=== PATIENT | male | born 1980 | race Two or more races ===

== ENCOUNTER 2017-01-18 22:29 | Emergency (ER) | payer BC ==
[~2017-01-18] VITALS: Ht 162.6 cm; Wt 73.5 kg
[2017-01-18 22:58] VITALS: BP 141/92
--- NOTE | 2017-01-18 23:14 | PHYS DOC ---
Past Medical History Past Medical History: Other Additional Past Medical Histor: acid reflux Past Surgical History: Tonsillectomy Alcohol Use: None Drug Use: None Adult General Chief Complaint Chief Complaint: SORE THROAT HPI HPI Patient is a 36 year old male presents to the emergency department stating that he has had a sore throat for the last 2 days states he's been having fever and chest burning type sensation. Patient states that the burning sensation goes up into his throat. He states that he does take Zantac however he has not missed any doses. He denies any dietary habits of fried greasy fatty foods. Patient denies any cough or congestion. Review of Systems Review of Systems Constitutional: fever Eyes: Denies change in visual acuity, redness, or eye pain [] HENT: Denies nasal congestion or sore throat [] Respiratory: Denies cough or shortness of breath [] Cardiovascular: No additional information not addressed in HPI. c/o burning sensation in the chest and up into the throat GI: Denies abdominal pain, nausea, vomiting, bloody stools or diarrhea [] : Denies dysuria or hematuria [] Musculoskeletal: Denies back pain or joint pain [] Integument: Denies rash or skin lesions [] Neurologic: Denies headache, focal weakness or sensory changes [] Endocrine: Denies polyuria or polydipsia [] All other systems were reviewed and found to be within normal limits, except as documented in this note. Current Medications Current Medications Current Medications Medications (Trade) Dose Ordered Sig/Skyler Start Time Stop Time Status Last Admin Dose Admin Al Hydroxide/Mg Hydroxide (Mylanta Plus Xs) 30 ml 1X ONCE 01/18/17 23:30 01/18/17 23:31 DC 01/18/17 23:23 30 ML Allergies Allergies Allergies Coded Allergies Type Severity Reaction Last Updated Verified No Known Drug Allergies 01/18/17 No Physical Exam Physical Exam Constitutional: Well developed, well nourished, no acute distress, non-toxic appearance. [] HENT: Normocephalic, atraumatic, bilateral external ears normal, oropharynx moist, no oral exudates, nose normal. Bilateral tympanic membranes appear to be normal. Throat with erythematous no exudate noted. Mucous membrane appears to be moist. No anterior cervical adenopathy noted. Eyes: PERRLA, EOMI, conjunctiva normal, no discharge. [] Neck: Normal range of motion, no tenderness, supple, no stridor. [] Cardiovascular:Heart rate regular rhythm, no murmur [] Lungs & Thorax: Bilateral breath sounds clear to auscultation [] Skin: Warm, dry, no erythema, no rash. [] Extremities: No tenderness, no cyanosis, no clubbing, ROM intact, no edema. [] Neurologic: Alert and oriented X 3, normal motor function, normal sensory function, no focal deficits noted. [] Psychologic: Affect normal, judgement normal, mood normal. [] Current Patient Data Vital Signs Vital Signs Date Time Temp Pulse Resp B/P (MAP) Pulse Ox O2 Delivery O2 Flow Rate FiO2 01/18/17 22:58 98.1 99 16 99 Room Air 98.1 EKG EKG [] Radiology/Procedures Radiology/Procedures [] Course & Med Decision Making Course & Med Decision Making Pertinent Labs and Imaging studies reviewed. (See chart for details) Rapid strep was negative. Patient be provided with a dose of Maalox here in the emergency department. Patient was provided with Maalox here in the emergency department after reevaluation patient states that the burning sensation is completely gone. Patient was recommended to stop taking the Zantac and will be placed on Nexium. Recommended that he follow-up with his primary care physician in the next 3-5 days. Recommended avoiding fried greasy fatty foods. Patient agrees with discharge instructions and treatment regimens. He'll be discharged home in stable condition patient does not appear to be in any current distress at this time. Patient agrees with discharge instructions, treatment regimens and follow-up recommendations. He was provided with all signs and symptoms to return back to the emergency department. I've spoken with the patient. I've explained the patient's condition, diagnosis and treatment plan based on information available to me at this time. I've answered the patient's and/or caregivers questions and addressed any concerns. The patient and/or caregivers have a good understanding the patient's diagnosis , condition and treatment plan as can be expected at this point. Vital signs have been stabilized. The patient's condition is stable for discharge from the emergency department. The patient will pursue further outpatient evaluation with her primary care provider or other designated consulting physician as outlined in the discharge instructions. Patient and/or caregivers are agreeable to this plan of care and follow-up instructions have been explained in detail. The patient and/or caregivers have received these instructions in written format and expressed understanding of these discharge instructions. The patient and her caregivers are aware that if any significant change in condition or worsening of symptoms should prompt him to immediately return to this of the closest emergency department. If an emergent department is not readily available I would encourage him to call 911. [] [place] Disclaimer Dragon Disclaimer This electronic medical record was generated, in whole or in part, using a voice recognition dictation system. Departure Departure Impression: Primary Impression: Pharyngitis Additional Impression: Acid reflux Disposition: HOME, SELF-CARE Condition: STABLE Referrals: NO PCP (PCP) Patient Instructions: Gastroesophageal Reflux Disease, Adult, [id number], Viral and Bacterial Pharyngitis, [id number] Additional Instructions: Activity as tolerated Medication as prescribed Stop taking the zantac and start taking the medication as prescribed Avoid fried, greasy fatty food Followup with your primary care provider in 3-5 days Return to emergency department as needed for signs and symptoms that become worse. Scripts Esomeprazole Magnesium (NEXIUM CAPSULE) 20 Mg Capsule. 20 MG PO DAILYAC, #30 CAP 0 Refills Prov: MOR PETERS APRN 01/18/17 Problem Qualifiers Primary Impression: Pharyngitis Pharyngitis/tonsillitis etiology: unspecified etiology Qualified Codes: J02.9 - Acute pharyngitis, unspecified Additional Impression: Acid reflux Esophagitis presence: esophagitis presence not specified Qualified Codes: K21.9 - Gastro-esophageal reflux disease without esophagitis MOR PETERS [employer] Jan 18, 2017 23:14
[2017-01-18] MEDS ORDERED: MAG HYDROX/ALUMINUM HYD/SIMETH 30 ML ORAL.SUSP PO ONE (23:30)
[2017-01-18] MEDS ORDERED: ESOM20CA PO (23:44)
[2017-01-19 09:56] LABS: NEGATIVE OBC STREP NEG; POSITIVE OBC STREP POS
== END 2017-01-18 23:59 | disposition home or self-care (01) ==
LOC: ER 22:29
DX: J02.9 Acute pharyngitis, unspecified (principal); K21.9 Gastro-esophageal reflux disease without esophagitis
CPT/HCPCS: 87070; 87880; 99283

== ENCOUNTER 2017-08-03 09:49 | Emergency (ER) | payer BC ==
[2017-08-03 10:19] LABS: NEGATIVE OBC STREP NEG; POSITIVE OBC STREP POS
== END 2017-08-03 10:39 | disposition home or self-care (01) ==
LOC: ER 09:49
DX: J02.9 Acute pharyngitis, unspecified (principal); J04.0 Acute laryngitis; K21.9 Gastro-esophageal reflux disease without esophagitis; I10 Essential (primary) hypertension
CPT/HCPCS: 87070; 87880; 99283

== ENCOUNTER → 2019-09-29 | Outpatient (CLI) | payer BC ==
[2017-08-03 10:09] VITALS: BP 154/93
[~2019-09-29] MED LIST: AZIT250T PO; BENZ100C PO; CETI10TA24 PO; ESOM20CA PO; PRED50TA PO
[2019-09-30 20:09] LABS: ANA INTERP Negative (.)
[2019-10-01 19:10] LABS: ALBUM 3.9 g/dL (2.9-4.4); ALPHA 1 0.2 g/dL (0.0-0.4); ALPHA 2 0.7 g/dL (0.4-1.0); BETA 1.1 g/dL (0.7-1.3); GAMMA 1.1 g/dL (0.4-1.8); SPEP AG RATIO 1.3 (0.7-1.7)
== END | disposition home or self-care (01) ==
LOC: LAB 12:05
PROVIDERS: ATTEND Psychiatry & Neurology Neurology with Special Qualifications in Child Neurology
DX: G62.89 Other specified polyneuropathies (principal); R20.0 Anesthesia of skin; R53.1 Weakness
CPT/HCPCS: 36415; 82607; 82746; 84165; 84443; 86038; 86140

== ENCOUNTER → 2019-10-05 | Outpatient (CLI) | payer BC ==
[2017-08-03 10:09] VITALS: BP 154/93
--- NOTE | 2019-10-05 13:07 | RAD ---
EXAM: Abdomen sonogram. HISTORY: Elevated liver enzyme laboratory values. TECHNIQUE: Sonographic imaging of the abdomen was performed. COMPARISON: None. FINDINGS: The liver is normal in size. There is hepatic steatosis. No focal hepatic lesion is seen. There is ulnar sludge. There is no evidence of cholecystitis. The common bile duct is normal in caliber. The right kidney is unremarkable. The inferior vena cava is patent. The pancreas is unremarkable. IMPRESSION: 1. Hepatic steatosis. 2. Gallbladder sludge. Electronically signed by: Danica Kelly MD (10/05/2019 1:04 PM) [id number]
== END | disposition home or self-care (01) ==
LOC: US 11:19
PROVIDERS: ATTEND Family Medicine
DX: K76.0 Fatty (change of) liver, not elsewhere classified (principal); R79.89 Other specified abnormal findings of blood chemistry; K82.8 Other specified diseases of gallbladder
CPT/HCPCS: 76705